=== PATIENT | male | born 1965 | race Caucasian/White ===

== ENCOUNTER 2022-08-18 21:10 | Emergency (ER) | payer BC ==
--- OUTSIDE RECORDS SUMMARY | 2022-08-18 21:15 | XMS REPORT | Continuity of Care Document ---
:1965 Author Organization [facility] t Address [address] [place] [address] Care Team Providers Name Role Phone Clair Ferguson Primary Care Physician DULCE JULIAN Attending Clinician Unavailable LU PAULINO Attending Clinician Unavailable ROBEL LOJA Attending Clinician Unavailable Lu Paulino MD Attending Clinician [phone] Sapna Quintanilla RN Attending Clinician Unavailable Alex Aaron MD Attending Clinician Doctor Unassigned, [place] Attending Clinician Unavailable YANETH CORTES Attending Clinician Unavailable LAB90 Attending Clinician Unavailable [place] Attending Clinician Unavailable MD KRZYSZTOF Attending Clinician Unavailable KENNEDI FOFANA Attending Clinician Unavailable Kennedi Fofana MD Attending Clinician CLAIR FERGUSON Attending Clinician Unavailable FRANKLIN BEE Attending Clinician Unavailable MD ISHAN MICHEL Attending Clinician Unavailable ISHAN MICHEL Attending Clinician Unavailable Lu Paulino MD Admitting Clinician [phone] LU PAULINO Admitting Clinician Unavailable KENNEDI FOFANA Admitting Clinician Unavailable MD ISHAN MICHEL Admitting Clinician Unavailable Payers Payer Name Policy Type Policy Number Effective Date Expiration Date S ource BCBS 2 [id number] 2020 00:00:00 [employer] [place] [id number] 2022 00:00:00 Problems Condition Condition Condition Status Onset Resolution Last Treating Co mments Source Name Details Category Date Date Treatment Clinician Date Rotator Rotator Disease Active Overview: Univ ers cuff cuff 07-11 Formattin ity of tendinitis tendinitis 00:00: g of this [place] , left , left 00 note Medical might be Branch different from the original. Added automatic ally from request for surgery [id number] No known No known Disease Unive rs active active ity of problems problems [facility] Allergies, Adverse Reactions, Alerts Allergy Allergy Status Severity Reaction(s) Onset Inactive Treating Comm ents Source Name Type Date Date Clinician NO KNOWN Drug Active Univers ALLERGIE Class ity of S [facility] Social History Social Habit Start Date Stop Date Quantity Comments Source History of Cigarette Smoker Universi ty of tobacco use [facility] Exposure to 2022-08-05 2022-08-15 Not sure University SARS-CoV-2 00:00:00 08:09:00 [facility] (event) Branch Tobacco use and 2022-07-27 2022-07-27 Smokeless tobacco Un iversity of exposure 00:00:00 00:00:00 non-user [facility] Sex Ass[birth year] [facility] 00:00:00 00:00:00 Smoking Status Start Date Stop Date Source Tobacco smoking [facility] consumption unknown Ex-smoker 2022-07-27 00:00:00 2022-07-27 [facility] 00:00:00 [facility] Medications Ordered Filled Start Stop Current Ordering Indication Dosage Frequency Signature Comments Components Source Medication Medication Date Date Medication? Clinician (SIG) Name Name ibuprofen Yes [id number] 600mg Take 1 Univers 600 mg 2-06 tablet by ity of tablet 00:00: mouth [place] 00 every 6 Medical (six) Branch hours as needed for Pain (scale 4-6). ibuprofen Yes [id number] 600mg Take 1 Univers 600 mg 2-06 tablet by ity of tablet 00:00: mouth [place] 00 every 6 Medical (six) Branch hours as needed for Pain (scale 4-6). ibuprofen Yes [id number] 600mg Take 1 Univers 600 mg 2-06 tablet by ity of tablet 00:00: mouth [place] 00 every 6 Medical (six) Branch hours as needed for Pain (scale 4-6). ibuprofen 2022-0 Yes [id number] 600mg Take 1 Univers 600 mg 2-06 tablet by ity of tablet 00:00: mouth [place] 00 every 6 Medical (six) Branch hours as needed for Pain (scale 4-6). HYDROcodone 2022- Yes [id number] 1{tbl} Take 1 U nivers -acetaminop 2-06 02-14 tablet by it y of hen ([employer]) 00:00: 05:59 [place] 10-[place] mg 00 :00 every 6 Medical tablet (six) Branch hours as needed for Pain (scale 4-6) for up to 7 days. Indication s: acute pain HYDROcodone 2022- Yes 4647 1{tbl} Take 1 U nivers -acetaminop 2-06 02-14 tablet by it y of hen ([employer]) 00:00: 05:59 [place] 10-325 mg 00 :00 every 6 Medical tablet (six) Branch hours as needed for Pain (scale 4-6) for up to 7 days. Indication s: acute pain HYDROcodone 2022- Yes 4647 1{tbl} Take 1 U nivers -acetaminop 2-06 02-14 tablet by it y of hen ([employer]) 00:00: 05:59 [place] 10-325 mg 00 :00 every 6 Medical tablet (six) Branch hours as needed for Pain (scale 4-6) for up to 7 days. Indication s: acute pain HYDROcodone 2022- Yes 4647 1{tbl} Take 1 U nivers -acetaminop 2-06 02-14 tablet by it y of hen ([employer]) 00:00: 05:59 [place] 10-325 mg 00 :00 every 6 Medical tablet (six) Branch hours as needed for Pain (scale 4-6) for up to 7 days. Indication s: acute pain HYDROcodone 2022- Yes 4647 1{tbl} Take 1 U nivers -acetaminop 1-31 02-08 tablet by it y of hen ([employer]) 00:00: 05:59 [place] 10-325 mg 00 :00 every 6 Medical tablet (six) Branch hours as needed for Pain (scale 7-10) for up to 7 days. Indication s: acute pain HYDROcodone 2022-0 2022- Yes 4647 1{tbl} Take 1 U nivers -acetaminop 1-31 02-08 tablet by it y of hen ([employer]) 00:00: 05:59 [place] 10-325 mg 00 :00 every 6 Medical tablet (six) Branch hours as needed for Pain (scale 7-10) for up to 7 days. Indication s: acute pain HYDROcodone 2022-0 2022- Yes 4647 1{tbl} Take 1 U nivers -acetaminop 1-31 02-08 tablet by it y of hen ([employer]) 00:00: 05:59 [place] 10-325 mg 00 :00 every 6 Medical tablet (six) Branch hours as needed for Pain (scale 7-10) for up to 7 days. Indication s: acute pain HYDROcodone 2022-0 2022- Yes 4647 1{tbl} Take 1 U nivers -acetaminop 1-31 02-08 tablet by it y of hen ([employer]) 00:00: 05:59 mouth [place] 10-325 mg 00 :00 every 6 Medical tablet (six) Branch hours as needed for Pain (scale 7-10) for up to 7 days. Indication s: acute pain HYDROcodone 2022-0 2022- Yes 4647 1{tbl} Take 1 U nivers -acetaminop 1-31 02-08 tablet by it y of hen ([employer]) 00:00: 05:59 [place] 10-325 mg 00 :00 every 6 Medical tablet (six) Branch hours as needed for Pain (scale 7-10) for up to 7 days. Indication s: acute pain HYDROcodone 2022-0 2022- Yes 4647 1{tbl} Take 1 U nivers -acetaminop 1-31 02-08 tablet by it y of hen ([employer]) 00:00: 05:59 mouth [place] 10-325 mg 00 :00 every 6 Medical tablet (six) Branch hours as needed for Pain (scale 7-10) for up to 7 days. Indication s: acute pain FENTanyl PF Yes 25ug 25 mcg, Uni vers (SUBLIMAZE -25 Slow IV ity of (PF)) 18:16: Push, [place] injection 04 Q5MIN PRN, Medi raza 25 mcg 4 doses, Branch Starting on Mon08/03/22 at 1216, Until Discontinu ed, Routine, Pain (scale 4-6), PACU ondansetron Yes 4mg 4 mg, Slow Univers (ZOFRAN 25 IV Push, ity of (PF)) 18:16: PRN, 1 [place] injection 4 04 dose, Medical mg Starting Branch on Mon08/03/22 at 1216, Until Discontinu ed, Routine, Nausea and Vomiting (N/V), PACU FENTanyl PF 2022-2022- No 25ug 25 mcg, Un ada (SUBLIMAZE 08-03 Slow IV ity o f (PF)) 18:16: 22:34 Push, [place] injection 04 :30 Q5MIN PRN, Medi raza 25 mcg 4 doses, Branch Starting on Mon08/03/22 at 1216, Until Mon08/03/22 at 1634, Routine, Pain (scale 4-6), PACU ondansetron 2022- No 4mg 4 mg, Slow Univers (ZOFRAN 08-03 IV Push, ity of (PF)) 18:16: 22:34 PRN, 1 [place] injection 4 04 :30 dose, Medical mg Starting Branch on Mon08/03/22 at 1216, Until Mon08/03/22 at 1634, Routine, Nausea and Vomiting (N/V), PACU sugammadex 2022- No IV Push, Un ada (BRIDION) 08-03 ONCE INTRA ity of injection 17:37: 18:23 PROCEDURE, [place] 00 :06 Starting Medical on Mon Branch 08/03/22 at 1137, Until Mon08/03/22 at 1223, Routine, Intra-op ketorolac 2022- No Slow IV Univ ers (TORADOL) 08-03 Push, ONCE ity of injection 17:36: 18:23 INTRA [place] 00 :06 PROCEDURE, Medical Starting Branch on Mon08/03/22 at 1136, Until Mon08/03/22 at 1223, Routine, Intra-op EPINEPHrine 2022- No PRN, Unive rs (PF) 08-03 Starting ity of 1:1,000 (1 16:09: 18:15 on Mon [place] mg/mL) 00 :53 08/03/22 at Medical (ADRENALIN 1009, Branch (PF)) 3 mL Intra-op in NaCl 0.9% (NS) 3,000 mL OR irrigation PHENYLephri 2022- No Slow IV Un ada ne 1000 08-03 Push, ONCE ity o f mcg/10 mL 15:51: 18:23 INTRA [place] in 0.9% 00 :06 PROCEDURE, Medica l NaCl Starting Branch syringe on Mon08/03/22 at 0951, Until Mon08/03/22 at 1223, Routine, Intra-op dexmedeTOMI 2022- No Intravenou Univers Dine 08-03 s, ONCE ity of (PRECEDEX) 15:47: 18:23 INTRA [place] injection 00 :06 PROCEDURE, Medi raza Starting Branch on Mon08/03/22 at 0947, Until Mon08/03/22 at 1223, Routine, Intra-op ceFAZolin 2022- No Intravenou U nivers (ANCEF) 08-03 s, ONCE ity of injection 15:45: 18:23 INTRA [place] 00 :06 PROCEDURE, Medical Starting Branch on Mon08/03/22 at 0945, Until Mon08/03/22 at 1223, SHERWIN, Intra-op ondansetron 2022- No Slow IV Un ada (ZOFRAN 08-03 Push, ONCE ity o f (PF)) 15:44: 18:23 INTRA [place] injection 00 :06 PROCEDURE, Medi raza Starting Branch on Mon08/03/22 at 0944, Until Mon08/03/22 at 1223, Routine, Intra-op dexamethaso 2022- No IV Push, U nivers ne 08-03 ONCE INTRA ity of (DECADRON 15:42: 18:23 PROCEDURE, [place] PHOSPHATE) 00 :06 Starting Medic al injection on Wed Branch 08/03/22 at 0942, Until Mon08/03/22 at 1223, Routine, Intra-op rocuronium 2022- No IV Push, Un ada (ZEMURON) 08-03 ONCE INTRA ity of injection 15:40: 18:23 PROCEDURE, [place] 00 :06 Starting Medical on Mon Branch 08/03/22 at 0940, Until Mon08/03/22 at 1223, Routine, Intra-op succinylcho 2022- No Intravenou Univers line 08-03 s, ONCE ity of (QUELICIN) 15:31: 18:23 INTRA [place] injection 00 :06 PROCEDURE, Medi raza Starting Branch on 08/03/22 at 0931, Until Mon08/03/22 at 1223, Routine, Intra-op propofoL IV 2022- No Intravenou Univers infusion 08-03 s, ONCE ity of 15:31: 18:23 INTRA [place] 00 :06 PROCEDURE, Medical Starting Branch on 08/03/22 at 0931, Until Mon08/03/22 at 1223, Routine, Intra-op lidocaine 2022- No Intravenou U nivers 1% 08-03 s, ONCE ity of (XYLOCAINE) 15:30: 18:23 INTRA [place] 100 mg/10 00 :06 PROCEDURE, Medi raza mL (1 %) Starting Branch injection on 08/03/22 at 0930, Until Mon08/03/22 at 1223, Routine, Intra-op bupivacaine 2022- No Infiltrati Univers (preserv 08-03 on, ONCE ity of free) 0.5% 14:13: 18:23 INTRA [place] (SENSORCAIN 00 :06 PROCEDURE, Me dical E MPF) 0.5 Starting Branc h % (5 mg/mL) on Wed injection 08/03/22 at 0813, Until Mon08/03/22 at 1223, Routine, Intra-op bupivacaine 2022- No Infiltrati Univers liposome 08-03 on, ONCE ity of (PF) 14:13: 18:23 INTRA [place] (EXPAREL 00 :06 PROCEDURE, Medic al (PF)) 1.3 % Starting Bran ch (13.3 on Mon mg/mL) 08/03/22 at injection 0813, Until Mon08/03/22 at 1223, Routine, Intra-op FENTanyl PF 2022- No Intravenou Univers (SUBLIMAZE 08-03 s, ONCE ity o f (PF)) 14:07: 18:23 INTRA [place] injection 00 :06 PROCEDURE, Medi raza Starting Branch on Mon08/03/22 at 0807, Until Mon08/03/22 at 1223, Routine, Intra-op midazolam 2022- No IV Push, Uni vers (VERSED) 08-03 ONCE INTRA ity of injection 14:05: 18:23 PROCEDURE, [place] 00 :06 Starting Medical on Mon Branch 08/03/22 at 0805, Until Mon08/03/22 at 1223, Routine, Intra-op lactated 2022- No IV Univers ringers IV 08-03 Infusion, ity of infusion 14:02: 18:23 CONTINUOUS [place] 00 :06 PRN, Medical Starting Branch on Mon08/03/22 at 0802, Until Mon08/03/22 at 1223, Routine, Intra-op HYDROcodone 2022- Yes [id number] 1{tbl} Take 1 U nivers -acetaminop 08-03 tablet by it y of hen 5-325 00:00: 05:59 mouth [place] mg tablet 00 :00 every 6 Medical (six) Branch hours as needed for Pain (scale 7-10) for up to 7 days. Indication s: acute pain ondansetron 2022- Yes [id number] 4mg Take 1 Univers (ZOFRAN) 4 08-03 [id number] tablet by i ty of mg tablet 00:00: 05:59 mouth [place] 00 :00 every 6 Medical (six) Branch hours for 7 days. traMADoL 50 2022- Yes [id number] 50mg Take 1 Uni vers mg tablet 08-03 tablet by ity of 00:00: 05:59 mouth [place] 00 :00 every 6 Medical (six) Branch hours as needed for Pain (scale 4-6) or Pain (scale 7-10) for up to 7 days. Indication s: acute pain HYDROcodone 2022- Yes 4647 1{tbl} Take 1 U nivers -acetaminop 08-03 tablet by it y of hen 5-325 00:00: 05:59 mouth [place] mg tablet 00 :00 every 6 Medical (six) Branch hours as needed for Pain (scale 7-10) for up to 7 days. Indication s: acute pain ondansetron 2022- Yes [id number] 4mg Take 1 Univers (ZOFRAN) 4 08-03 [id number] tablet by i ty of mg tablet 00:00: 05:59 mouth [place] 00 :00 every 6 Medical (six) Branch hours for 7 days. traMADoL 50 2022- Yes [id number] 50mg Take 1 Uni vers mg tablet 08-03 tablet by ity of 00:00: 05:59 mouth [place] 00 :00 every 6 Medical (six) Branch hours as needed for Pain (scale 4-6) or Pain (scale 7-10) for up to 7 days. Indication s: acute pain HYDROcodone 2022- Yes 4647 1{tbl} Take 1 U nivers -acetaminop 08-03 tablet by it y of hen 5-325 00:00: 05:59 mouth [place] mg tablet 00 :00 every 6 Medical (six) Branch hours as needed for Pain (scale 7-10) for up to 7 days. Indication s: acute pain ondansetron 2022- Yes [id number] 4mg Take 1 Univers (ZOFRAN) 4 08-03 [id number] tablet by i ty of mg tablet 00:00: 05:59 mouth [place] 00 :00 every 6 Medical (six) Branch hours for 7 days. traMADoL 50 2022-2022- Yes 4647 50mg Take 1 Uni vers mg tablet 08-03 tablet by ity of 00:00: 05:59 mouth [place] 00 :00 every 6 Medical (six) Branch hours as needed for Pain (scale 4-6) or Pain (scale 7-10) for up to 7 days. Indication s: acute pain HYDROcodone 2022- Yes 4647 1{tbl} Take 1 U nivers -acetaminop 08-03 tablet by it y of hen 5-325 00:00: 05:59 mouth [place] mg tablet 00 :00 every 6 Medical (six) Branch hours as needed for Pain (scale 7-10) for up to 7 days. Indication s: acute pain ondansetron 2022- Yes [id number] 4mg Take 1 Univers (ZOFRAN) 4 08-03 [id number] tablet by i ty of mg tablet 00:00: 05:59 mouth [place] 00 :00 every 6 Medical (six) Branch hours for 7 days. traMADoL 50 2022- Yes [id number] 50mg Take 1 Uni vers mg tablet 08-03 tablet by ity of 00:00: 05:59 mouth [place] 00 :00 every 6 Medical (six) Branch hours as needed for Pain (scale 4-6) or Pain (scale 7-10) for up to 7 days. Indication s: acute pain HYDROcodone 2022- Yes 4647 1{tbl} Take 1 U nivers -acetaminop 08-03 tablet by it y of hen 5-325 00:00: 05:59 mouth [place] mg tablet 00 :00 every 6 Medical (six) Branch hours as needed for Pain (scale 7-10) for up to 7 days. Indication s: acute pain ondansetron 2022- Yes [id number] 4mg Take 1 Univers (ZOFRAN) 4 08-03 [id number] tablet by i ty of mg tablet 00:00: 05:59 mouth [place] 00 :00 every 6 Medical (six) Branch hours for 7 days. traMADoL 50 2022- Yes [id number] 50mg Take 1 Uni vers mg tablet 08-03 tablet by ity of 00:00: 05:59 mouth [place] 00 :00 every 6 Medical (six) Branch hours as needed for Pain (scale 4-6) or Pain (scale 7-10) for up to 7 days. Indication s: acute pain HYDROcodone 2022- Yes 4647 1{tbl} Take 1 U nivers -acetaminop 08-03 tablet by it y of hen 5-325 00:00: 05:59 mouth [place] mg tablet 00 :00 every 6 Medical (six) Branch hours as needed for Pain (scale 7-10) for up to 7 days. Indication s: acute pain ondansetron 2022- Yes [id number] 4mg Take 1 Univers (ZOFRAN) 4 08-03 [id number] tablet by i ty of mg tablet 00:00: 05:59 mouth [place] 00 :00 every 6 Medical (six) Branch hours for 7 days. traMADoL 50 2022- Yes [id number] 50mg Take 1 Uni vers mg tablet 08-03 tablet by ity of 00:00: 05:59 mouth [place] 00 :00 every 6 Medical (six) Branch hours as needed for Pain (scale 4-6) or Pain (scale 7-10) for up to 7 days. Indication s: acute pain HYDROcodone 2022- Yes 4647 1{tbl} Take 1 U nivers -acetaminop 08-03 tablet by it y of hen 5-325 00:00: 05:59 mouth [place] mg tablet 00 :00 every 6 Medical (six) Branch hours as needed for Pain (scale 7-10) for up to 7 days. Indication s: acute pain ondansetron 2022- Yes [id number] 4mg Take 1 Univers (ZOFRAN) 4 08-03 [id number] tablet by i ty of mg tablet 00:00: 05:59 mouth [place] 00 :00 every 6 Medical (six) Branch hours for 7 days. traMADoL 50 2022- Yes [id number] 50mg Take 1 Uni vers mg tablet 08-03 tablet by ity of 00:00: 05:59 mouth [place] 00 :00 every 6 Medical (six) Branch hours as needed for Pain (scale 4-6) or Pain (scale 7-10) for up to 7 days. Indication s: acute pain No known No No known Unive rs medications -12 medication it y of 12:04: s [place] 29 Medical Branch No known 2022-0 No No known Unive rs medications - medication it y of 15:48: s [place] [facility] Branch No known 2022-0 No No known Unive rs medications -02 medication it y of 15:48: s [place] [id number] Medical Branch amoxicillin 2021- Yes 1{tbl} Take 1 Un ada 500 mg 2-30 tablet by ity of tablet 00:00: mouth in [place] 00 the Medical [facility] Branch and 1 tablet at noon and 1 tablet in the evening. ibuprofen 2021-07 Yes as needed. Un ada 800 mg 2-30 ity of tablet 00:00: [place] [facility] lisinopriL- 2021-07 Yes 1{tbl} Take 1 Un ada hydrochloro 2-30 tablet by ity of thiazide 00:00: mouth [place] 10-12.5 mg 00 every Medical per tablet morning. Branc h ibuprofen 2021-07 Yes as needed. Un ada 800 mg 2-30 ity of tablet 00:00: [place] [facility] lisinopriL- 2021-07 Yes 1{tbl} Take 1 Un ada hydrochloro 2-30 tablet by ity of thiazide 00:00: mouth [place] 10-12.5 mg 00 every Medical per tablet morning. Branc h ibuprofen 2021-07 Yes as needed. Un ada 800 mg 2-30 ity of tablet 00:00: [place] [facility] lisinopriL- 2021-07 Yes 1{tbl} Take 1 Un ada hydrochloro 2-30 tablet by ity of thiazide 00:00: mouth [place] 10-12.5 mg 00 every Medical per tablet morning. Branc h ibuprofen 2021-07 Yes as needed. Un ada 800 mg 2-30 ity of tablet 00:00: [place] [facility] lisinopriL- 2021-07 Yes 1{tbl} Take 1 Un ada hydrochloro 2-30 tablet by ity of thiazide 00:00: mouth [place] 10-12.5 mg 00 every Medical per tablet morning. Branc h ibuprofen 2021-07 Yes as needed. Un ada 800 mg 2-30 ity of tablet 00:00: [place] [facility] lisinopriL- 2021-07 Yes 1{tbl} Take 1 Un ada hydrochloro 2-30 tablet by ity of thiazide 00:00: mouth [place] 10-12.5 mg 00 every Medical per tablet morning. Branc h ibuprofen 2021-07 Yes as needed. Un ada 800 mg 2-30 ity of tablet 00:00: [place] [facility] lisinopriL- 2021-07 Yes 1{tbl} Take 1 Un ada hydrochloro 2-30 tablet by ity of thiazide 00:00: mouth [place] 10-12.5 mg 00 every Medical per tablet morning. Branc h ibuprofen 2021-07 Yes as needed. Un ada 800 mg 2-30 ity of tablet 00:00: [facility] lisinopriL- 2021-07 Yes 1{tbl} Take 1 Un ada hydrochloro 2-30 tablet by ity of thiazide 00:00: mouth [place] 10-12.5 mg 00 every Medical per tablet morning. Branc h ibuprofen 2021-07 Yes as needed. Un ada 800 mg 2-30 ity of tablet 00:00: [facility] lisinopriL- 2021-07 Yes 1{tbl} Take 1 Un ada hydrochloro 2-30 tablet by ity of thiazide 00:00: mouth [place] 10-12.5 mg 00 every Medical per tablet morning. Branc h ibuprofen 2021-07 Yes as needed. Un ada 800 mg 2-30 ity of tablet 00:00: [facility] lisinopriL- 2021-07 Yes 1{tbl} Take 1 Un ada hydrochloro 2-30 tablet by ity of thiazide 00:00: mouth [place] 10-12.5 mg 00 every Medical per tablet morning. Branc h ibuprofen 2021-07 Yes as needed. Un ada 800 mg 2-30 ity of tablet 00:00: [facility] lisinopriL- 2021-07 Yes 1{tbl} Take 1 Un ada hydrochloro 2-30 tablet by ity of thiazide 00:00: mouth [place] 10-12.5 mg 00 every Medical per tablet morning. Bran h ibuprofen 2021-07 Yes as needed. Un ada 800 mg 2-30 ity of tablet 00:00: [facility] lisinopriL- 2021-07 Yes 1{tbl} Take 1 Un ada hydrochloro 2-30 tablet by ity of thiazide 00:00: mouth [place] 10-12.5 mg 00 every Medical per tablet morning. Branc h ibuprofen 2021-07 Yes as needed. Un ada 800 mg 2-30 ity of tablet 00:00: [facility] lisinopriL- 2021-07 Yes 1{tbl} Take 1 Un ada hydrochloro 2-30 tablet by ity of thiazide 00:00: mouth [place] 10-12.5 mg 00 every Medical per tablet [facility]. [facility]-07 Yes as needed. Un ada 800 mg 2-30 ity of tablet 00:00: [place] [facility] lisinopriL- 2021-07 Yes 1{tbl} Take 1 Un ada hydrochloro 2-30 tablet by ity of thiazide 00:00: mouth [place] 10-12.5 mg 00 every Medical per tablet morning. [facility] ibuprofen 2021-07 Yes as needed. Un ada 800 mg 2-30 ity of tablet 00:00: [place] [facility] lisinopriL- 2021-07 Yes 1{tbl} Take 1 Un ada hydrochloro 2-30 tablet by ity of thiazide 00:00: mouth [place] 10-12.5 mg 00 every Medical per tablet morning. [facility] amoxicillin 2021-07- No 1{tbl} Take 1 U nivers 500 mg 2-30 01-25 tablet by ity of tablet 00:00: 00:00 mouth in [place] 00 :[facility] morning Branch and 1 tablet at noon and 1 tablet in the evening. amoxicillin 2021-07- No 1{tbl} Take 1 U nivers 500 mg 2-30 01-25 tablet by ity of tablet 00:00: 00:00 mouth in [place] 00 :00 [facility] morning Branch and 1 tablet at noon and 1 tablet in the evening. amoxicillin 2021-07- No 1{tbl} Take 1 U nivers 500 mg 2-30 01-25 tablet by ity of tablet 00:00: 00:00 mouth in [place] 00 :00 [facility] morning Branch and 1 tablet at noon and 1 tablet in the evening. No known 2021-07 No No known Unive rs medications 1-23 medication it y of 13:49: s [address] No known 2021-07 No No known Unive rs medications - medication it y of 13:49: [address] No known 2021-07 No No known Unive rs medications - medication it y of 13:49: [address] No known 2021-07 No No known Unive rs medications -23 medication it y of 13:49: [address] No known 2021-07 No No known Unive rs medications 1-23 medication it y of 13:49: s [place] [address] Medical Branch No known 2021-07 No No known Unive rs medications 1-23 medication it y of 13:49: s [place] [address] Medical Branch No known 2021-07 No No known Unive rs medications 1-23 medication it y of 13:49: s [place] [address] Medical Branch No known 2021-07 No No known Unive rs medications 1-23 medication it y of 13:49: [place] [address] Medical Branch omeprazole 2021- Yes 20mg Take 20 mg U nivers 20 mg 0-20 by mouth ity of capsule 00:00: in the [place] 00 morning. Medical Branch omeprazole 2021-1 Yes 20mg Take 20 mg U nivers 20 mg 0-20 by mouth ity of capsule 00:00: in the [place] 00 morning. Medical Branch omeprazole 2021-1 Yes 20mg Take 20 mg U nivers 20 mg 0-20 by mouth ity of capsule 00:00: in the [place] 00 morning. Medical Branch omeprazole 2021-1 Yes 20mg Take 20 mg U nivers 20 mg 0-20 by mouth ity of capsule 00:00: in the [place] 00 morning. Medical Branch omeprazole 2021-1 Yes 20mg Take 20 mg U nivers 20 mg 0-20 by mouth ity of capsule 00:00: in the [place] 00 morning. Medical Branch omeprazole 2021-1 Yes 20mg Take 20 mg U nivers 20 mg 0-20 by mouth ity of capsule 00:00: in the [place] 00 morning. Medical Branch omeprazole 2021-1 Yes 20mg Take 20 mg U nivers 20 mg 0-20 by mouth ity of capsule 00:00: in the [place] 00 morning. Medical Branch omeprazole 2021-1 Yes 20mg Take 20 mg U nivers 20 mg 0-20 by mouth ity of capsule 00:00: in the [place] 00 morning. Medical Branch omeprazole 2021-1 Yes 20mg Take 20 mg U nivers 20 mg 0-20 by mouth ity of capsule 00:00: in the [place] 00 morning. Medical Branch omeprazole 2021-1 Yes 20mg Take 20 mg U nivers 20 mg 0-20 by mouth ity of capsule 00:00: in the [place] 00 morning. Medical Branch omeprazole 2021-1 Yes 20mg Take 20 mg U nivers 20 mg 0-20 by mouth ity of capsule 00:00: in the [place] 00 morning. Medical Branch omeprazole 2021-07 Yes 20mg Take 20 mg U nivers 20 mg 0-20 by mouth ity of capsule 00:00: in the [place] morning. Medical Branch omeprazole 2021-07 Yes 20mg Take 20 mg U nivers 20 mg 0-20 by mouth ity of capsule 00:00: in the [place] morning. Medical Branch omeprazole 2021-07 Yes 20mg Take 20 mg U nivers 20 mg 0-20 by mouth ity of capsule 00:00: in the [place] 00 morning. Medical Branch methylPREDN 2021-07- No [id number] 80mg Univers ISolone 04-20 [id number] ity of acetate 21:30: 20:40 [place] (DEPO-MEDRO 00 :00 Medical L) Branch injection 80 mg methylPREDN 2021-07- No [id number] 80mg 80 mg, Univers ISolone 04-20 [id number] Intramuscu ity of acetate 21:30: 20:40 [place], ONCE, [place] as (DEPO-MEDRO 00 :00 1 dose, On Me dical L) Wed Branch injection 04/20/22 80 mg at 1630, Routine methylPREDN 2021-07- No [id number] 80mg Univers ISolone 04-20 [id number] ity of acetate 21:30: 20:40 [place] (DEPO-MEDRO 00 :00 Medical L) Branch injection 80 mg methylPREDN 2021-07- No [id number] 80mg 80 mg, Univers ISolone 04-20 [id number] Intramuscu ity of acetate 21:30: 20:40 lar, ONCE, [place] as (DEPO-MEDRO 00 :00 1 dose, On Me dical L) [facility] Branch injection 04/20/22 80 mg at 1630, Routine No known 2021-07 No No known Unive rs medications 0-10 medication it y of 10:14: s [address] No known 2021-07 No No known Unive rs medications 0-10 medication it y of 10:14: s [address] No known 2021-07 No No known Unive rs medications 0-10 medication it y of 10:14: s [address] No known 2021-07 No No known Unive rs medications 0-10 medication it y of 10:14: s [address] Vital Signs Vital Name Observation Time Observation Value Comments Source Systolic blood 2022-08-15 14:19:00 150 mm[Hg] Univer sity of pressure [facility] Branch Diastolic blood 2022-08-15 14:19:00 80 mm[Hg] Unive rsity of [facility] Heart rate 2022-08-15 14:19:00 79 /min Universi ty of [facility] Body temperature 2022-08-15 14:17:00 36.56 Ermelinda Univ ersity of [facility] Body height 2022-08-15 14:17:00 182.9 cm [facility] [place] [facility] Body weight 2022-08-15 14:17:00 109.725 kg [facility] [place] [facility] BMI 2022-08-15 14:17:00 32.81 kg/m2 Universi ty of [facility] Heart rate 2022-08-03 19:55:00 85 /min Universi ty [facility] Oxygen saturation in 2022-08-03 19:55:00 94 /min University Arterial blood by [facility] Pulse oximetry Branch Systolic blood 2022-08-03 19:50:00 134 mm[Hg] Univer sity of [facility] Diastolic blood 2022-08-03 19:50:00 77 mm[Hg] Unive rsity of [facility] Respiratory rate 2022-08-03 19:50:00 16 /min Univ ersity of [facility] Body temperature 2022-08-03 18:12:00 35.94 Ermelinda Univ ersity of [facility] Body height 2022-08-03 13:13:00 182.9 cm [facility] [place] [facility] Body weight 2022-08-03 13:13:00 99.791 kg [facility] [place] [facility] BMI 2022-08-03 13:13:00 29.84 kg/m2 [facility] [place] [facility] Systolic blood 2022-08-03 13:13:00 150 mm[Hg] Univer sity of pressure [facility] Diastolic blood 2022-08-03 13:13:00 90 mm[Hg] Unive rsity of pressure [facility] Heart rate 2022-08-03 13:13:00 79 /min Universi ty of [facility] Body temperature 2022-08-03 13:13:00 36.89 Ermelinda [facility] ersity of [facility] Respiratory rate 2022-08-03 13:13:00 18 /min [facility] ersity of [facility] Body height 2022-08-03 13:13:00 182.9 cm Universi ty of [facility] Body weight 2022-08-03 13:13:00 99.791 kg Universi ty [facility] BMI 2022-08-03 13:13:00 29.84 kg/m2 Universi ty [facility] Oxygen saturation in 2022-08-03 13:13:00 98 [facility] blood by [facility] Pulse oximetry Branch Body weight 2022-07-11 21:06:00 107.457 kg Universi ty [facility] BMI 2022-07-11 21:06:00 32.13 kg/m2 Universi ty [facility] Body temperature 2022-07-11 21:06:00 36.39 Ermelinda [facility] ersity of [facility] Body height 2022-07-11 21:06:00 182.9 cm Universi ty [facility] Systolic blood 2022-04-18 15:13:00 131 mm[Hg] Univer sity of [facility] Diastolic blood 2022-04-18 15:13:00 75 mm[Hg] [facility] Heart rate 2022-04-18 15:13:00 92 /min Universi ty [facility] Body temperature 2022-04-18 15:13:00 36.11 Ermelinda [facility] ersity of [facility] Body height 2022-04-18 15:13:00 182.9 cm [facility] [place] [facility] [place] Body weight 2022-04-18 15:13:00 105.053 kg Universi ty of [facility] Branch BMI 2022-04-18 15:13:00 31.41 kg/m2 Universi ty of [facility] Procedures Procedure Date / Time Performing Clinician Source Performed NERVE BLOCK 2022-08-05 18:13:01 Esvin Anderson [facility] INTUBATION 2022-08-03 15:33:00 Jeanne Farrar [facility] ARTHROSCOPIC SHOULDER 2022-08-03 15:11:00 Lu Paulino [facility] ROTATOR CUFF REPAIR [facility] SHOULDER TENODESIS 2022-08-03 15:11:00 [facility] ARTHROSCOPIC SHOULDER 2022-08-03 15:11:00 Lu Paulino [facility] DEBRIDEMENT [facility] DISTAL CLAVICAL RESECTION 2022-08-03 15:11:00 [facility] ASSIGN[facility] BENEFITS 2022-08-03 12:49:12 [facility], [facility] Branch INSURANCE CORRESPONDENCE 2022-07-22 06:01:00 Doctor Unassigned, [facility] Name Medical Branch MR SHOULDER LEFT WO 2022-06-30 17:21:18 Lu Paulino [facility] CONTRAST [facility] ASSIGNMENT OF BENEFITS 2022-06-07 18:43:29 Doctor Unassigned, [facility] Name [facility] XR SHOULDER 2+ VW 2022-04-18 15:22:43 [facility] Plan of Care Planned Activity Planned Date Details Comments Source Future Scheduled 2022-08-18 COVID-19 VACCINE (#1) [facility] Hospital Test 21:13:05 [code = COVID-19 VACCINE (#1)] Future Scheduled 2022-08-18 COLONOSCOPY SCREENING [facility] Test 21:13:05 [code = COLONOSCOPY SCREENING] Future Scheduled 2022-08-18 SHINGLES VACCINES (1 Met [facility] Hospital Test 21:13:05 of 2) [code = SHINGLES VACCINES (1 of 2)] Future Scheduled 2022-08-18 INFLUENZA VACCINE [facility] Test 21:13:05 [code = INFLUENZA VACCINE] Encounters Start End Encounter Admission Attending Care Care Encounter Source Date/Time Date/Time Type Type Clinicians Facility Department ID 2022-09-28 2022-09-28 Outpatient ASHLEY JULIAN [id number] [place] 15:00:00 15:00:00 DULCE Seybol d 2022-08-19 2022-08-19 [facility] [id number] Univers 08:45:00 08:45:00 ROBEL ity [facility] 2022-08-16 2022-08-16 Patient [facility] [id number] Univers 00:00:00 00:00:00 Secure Msg Lu SPECIALTY [id number] ity [id number] [phone] [place] michelle HERBERT [address] [place] [address] 2022-08-15 2022-08-15 [facility] [id number] Univers 08:00:00 08:41:43 LU itmaliha [facility] 2022-08-15 2022-08-15 Office [facility] [id number] Univers 08:00:00 08:41:43 Visit Lu SPECIALTY [id number] ity [id number] [phone] [place] michelle HERBERT [address] [place] [address] 2022-08-12 2022-08-12 Telephone [facility] [id number] Univers 00:00:00 00:00:00 Lu SPECIALTY [id number] it[id number] AT [phone] [place] michelle HERBERT [address] [place] [address] 2022-08-09 2022-08-09 Telephone [facility] [id number] Univers 00:00:00 00:00:00 Lu SPECIALTY [id number] ity [id number] AT [phone] [place] michelle HERBERT [address] [place] [address] 2022-08-04 2022-08-04 Telephone [facility] [id number] Univers 00:00:00 00:00:00 Lu SPECIALTY [id number] ity [id number] AT [id number] [place] dicyaron HERBERT 198 [facility] 2022-08-03 2022-08-03 Hospital [facility] [id number] Univers 06:49:00 14:07:00 Encounter Lu [facility] [id number] ity of [place] [facility] [id number] [address] ([facility]) 2022-08-03 2022-08-03 Outpatient R [facility] [id number] Univers 06:49:00 14:07:00 LU ity [facility] 2022-08-03 2022-08-03 Anesthesia Sapna Quintanilla [facility] 1.2.84 [id number] [id number] Univers 09:21:00 12:15:00 Event Alex Aaron SPECIALTY 350.1.13.1 0 ity of CARE 4.2[address] [facility] s CENTER AT [phone] [place] dicyaron HERBERT 020 [facility] 2022-08-03 2022-08-03 Surgery [facility] [id number] Univers 08:56:00 12:08:00 Lu SPECIALTY 350.1.13.10 ity of [place] CARE [id number] [facility] CENTER AT [id number] Ks moustaphayaron HERBERT 020 [facility] 2022-08-03 2022-08-03 Orders Doctor GEE [id number] Univers 00:00:00 00:00:00 Only Unassigned, LOYDA 350.1.13.10 ity of [place] [facility] 4.2.7.2.686 [place] as [id number] [address] 2022-07-22 2022-07-22 Orders Doctor GEE [id number] Univers 00:00:00 00:00:00 Only Unassigned, LOYDA 350.1.13.10 ity of [place] [facility] 4.2.7.2.686 [place] as [id number] [address] 2022-07-18 2022-07-18 Outpatient ASHLEY JULIAN [id number] [place] 14:00:00 14:00:00 DULCE Seybol d 2022-07-18 2022-07-18 Outpatient SOPHIA ASHLEY ASHLEY [id number] [place] 00:00:00 00:00:00 YANETH Seybol d 2022-07-18 2022-07-18 Outpatient ELIEL ASHLEY TANNER [id number] [place] 00:00:00 00:00:00 DULCE Seybol d 2022-07-15 2022-07-15 Outpatient LAB90 ASHLEY TANNER [id number] [place] 11:15:00 11:15:00 Seybol d 2022-07-15 2022-07-15 Outpatient PRATEEK PERATLA ASHLEY TANNER [id number] [place] 11:15:00 11:15:00 Seybol d 2022-07-11 2022-07-11 [facility] [id number] [facility] 14:30:00 15:27:01 LU de la cruz [facility] 2022-07-11 2022-07-11 Office [facility] [id number] [facility] 14:30:00 15:27:01 Visit Lu MALIK 350.1.13.10 jono conte Bill [facility] [id number] [facility] AT [phone] [address] 2022-06-30 2022-06-30 Outpatient [facility] [id number] Univers 10:38:44 23:59:00 LU de la cruz [facility] 2022-06-30 2022-06-30 [facility] 1.2.840.114 [id number] Univers 10:38:44 23:59:00 Encounter Lu CHUA 350.1.13.10 Didier [place] 4.2.7.2.686 [facility] [id number] [address] 2022-06-30 2022-06-30 Telephone [facility] 1.2.840.114 [id number] Univers 00:00:00 00:00:00 Lu SPECIALTY 350.1.13.10 ity of Bill CARE [id number] [facility] AT [phone] [place]s dical VICTORY 198 [facility] 2022-06-20 2022-06-20 Outpatient ZOE TANNER [id number] Ashley 00:00:00 00:00:00 MD Fabiola AGUILLON 2022-06-17 2022-06-17 Outpatient ZOE TANNER [id number] [place] 00:00:00 00:00:00 MD Fabiola AGUILLON 2022-06-16 2022-06-16 Outpatient ASHLEY JULIAN [id number] [place] 00:00:00 00:00:00 DULCE naqvi 2022-06-10 2022-06-10 Outpatient ZOE TANNER [id number] [place] 00:00:00 00:00:00 MD Fabiola AGUILLON 2022-06-07 2022-06-07 Outpatient [facility] [id number] Univers 12:45:50 23:59:00 KENNEDI ity of [facility] 2022-06-07 2022-06-07 [facility] 1.2.840.114 [id number] Univers 12:45:00 23:59:00 Encounter Kennedi CHUA 350.1.13.10 ity of [place] 4.2.7.2.686 [facility] [id number] [facility] [address] [place] 2022-06-07 2022-06-07 Orders Doctor GEE 1.2.840.114 [id number] Univers 00:00:00 00:00:00 Only Unassigned, LOYDA 350.1.13.10 ity of [place] [facility] 4.2.7.2.686 [place] [id number] [facility] [address] [place] 2022-06-07 2022-06-07 [facility]phone [facility] 1.2.840.114 [id number] Univers 00:00:00 00:00:00 Lu SPECIALTY 350.1.13.[address] [facility] [id number] [id number] [place] michelle HERBERT 198 [facility] 2022-06-06 2022-06-06 Outpatient LAB90 ASHLEY TANNER [id number] [place] 11:15:00 11:15:00 Seybol d 2022-06-06 2022-06-06 Outpatient ASHLEY FERGUSON [id number] [place] 00:00:00 00:00:00 CLAIR Seybol d 2022-06-01 2022-06-01 Outpatient ZOE ASHLEY TANNER [id number] [place] 00:00:00 00:00:00 MD PAL Seybol d 2022-05-30 2022-05-30 Telemedici [facility] 1.2.840.114 [id number] [facility] 12:45:00 13:00:00 ne Visit Lu SPECIALTY 350.1.13.[address] [facility] [id number] [facility] CENTER AT [phone] [place]s michelle HERBERT 198 [facility] 2022-05-30 2022-05-30 Outpatient [facility] [id number] [facility] 12:45:00 12:45:00 LU de la cruz [facility] 2022-05-18 2022-05-18 Outpatient ASHLEY JULIAN [id number] [place] 15:00:00 15:00:00 DULCE Seybol d 2022-05-17 2022-05-17 Outpatient ASHLEY FERGUSON [id number] [place] 00:00:00 00:00:00 CLAIR Seybol d 2022-05-05 2022-05-05 Outpatient LAB90 ASHLEY TANNER [id number] [place] 11:20:00 11:20:00 Seybol d 2022-04-28 2022-04-28 Outpatient ASHLEY FERGUSON [id number] [place] 16:00:00 16:00:00 CLAIR Seybol d 2022-04-18 2022-04-18 [facility] 1.2.840.114 [id number] Univers 10:14:56 23:59:00 Encounter Lu [facility] s [place] AT [phone] [place]s michelle HERBERT 809 [facility] 2022-04-18 2022-04-18 Office [facility] [id number] Univers 10:15:00 10:56:59 Visit Lu MALIK [facility].1.13.10 [facility] 4.2.7.2.686 [facility] AT [id number] [place] michelle HERBERT 198 [facility] 2022-04-18 2022-04-18 [facility] [id number] [facility] 10:15:00 10:56:59 LU de la cruz [facility] 2021-02-09 2021-02-09 Outpatient ASHLEY BEE [id number] [place] 09:00:00 09:00:00 FRANKLIN naqvi 2020-06-24 2020-06-24 [facility] [id number] [place] 00:00:00 00:00:00 ISHAN Lopez Method i st Results Test Description Test Time Test Comments Results Result Comments Source SARS-CoV-2 (COVID-19) RNA [Presence] in Respiratory sp ecimen by 2020-06-24 20:18:00 MARIO with probe detection Test Item Value Reference Range Interpretation Comme nts SARS-CoV-2 (COVID-19) RNA [Presence] in Respiratory Not detected No t-Detected specimen by MARIO with probe detection (test code = 80004-9) CARLIN SORTO [place] [facility]
--- NOTE | 2022-08-18 21:52 | RAD REPORT ---
EXAM DESCRIPTION: CT - CTHCSPWOC - 08/18/2022 9:39 pm CLINICAL HISTORY: Trauma, head and neck injury. fall, head injury COMPARISON: No comparisons TECHNIQUE: Axial 5 mm thick images of the head were obtained. Axial 2 mm thick images of the cervical spine were obtained with sagittal and coronal reconstruction images generated and reviewed. All CT scans are performed using dose optimization technique as appropriate and may include automated exposure control or mA/KV adjustment according to patient size. FINDINGS: CT HEAD WITHOUT CONTRAST: There is increased density seen along the anterior aspect of the falx measuring up to 3 mm.This is qu estionable for small amount of subdural blood.No areas of brain edema or midline shift. The paranasal sinuses and mastoids are clear.The calvarium is intact. Large left posterior scalp susie paul measuring to [address] CERVICAL SPINE WITHOUT CONTRAST: No fracture or subluxation.Prominent degenerative changes seen C2-3 left facet joint.No prevertebral soft tissues swelling is identified. IMPRESSION: Subtle increased density seen aspect falx is questionable for a small amount of subdural blood.MRI the brain would be helpful further clarification. Large left posterior scalp hematoma. No acute cervical spine abnormality.
--- NOTE | 2022-08-18 21:54 | RAD REPORT ---
EXAM DESCRIPTION: CT - CTFB CLINICAL HISTORY: FACIAL PAIN Trauma, facial pain and swelling. COMPARISON: No comparisons TECHNIQUE: Axial 2 mm thick images of the face were obtained with sagittal and coronal reconstructio n images. All CT scans are performed using dose optimization technique as appropriate and may include automated exposure control or mA/KV adjustment according to patient size. FINDINGS: No acute facial bone fracture is seen.The mandible is intact. The globes and orbital contents are grossly unremarkable.The paranasal sinuses and mastoids are clear . IMPRESSION: Negative for facial bone fracture.
[2022-08-18] MEDS ORDERED: MORPHINE 4 MG/ML SYR ONE ×2 (21:59→23:03)
[2022-08-18] MEDS ORDERED: ONDANSETRON 4 MG/2 ML VIAL ONE (21:59)
[2022-08-18 22:01] LABS: Absolute Lymphocytes (CBC) 1.7 K/uL (0.7-4.9); Hematocrit 40.2 % (39.6-49.0); Lymphocytes % 25.6 % (15.3-44.8); MCV 95.8 fL (80-100); MPV 7.8 fL (7.6-11.3)
--- NOTE | 2022-08-18 22:05 | ER ---
Nurse's Notes [facility] Name: Kendell Ramos Age: 56 yrs Sex: Male : 1965 Arrival Date: 08/18/2022 Time: 21:11 Bed 5 Private MD: Diagnosis: Traumatic subdural hemorrhage with loss of consciousness of unspecified duration;Concussion with loss of consciousness of unspecified duration;Laceration with foreign body of other part of head, initial encounter Presentation: 08/18 21:25 Chief complaint: Patient states: I fell and hit my head, I don't remember everything vc1 that happened so I think I lost consciousness. Coronavirus screen: Vaccine status: Patient reports receiving the 1st dose of the Covid vaccine. Client denies travel out of the [place] in the last 14 days. At this time, the client does not indicate any symptoms associated with coronavirus-19. Ebola Screen: Patient negative for fever greater than or equal to 101.5 degrees Fahrenheit, and additional compatible Ebola Virus Disease symptoms Patient denies exposure to infectious person. Patient denies travel to an Ebola-affected area in the 21 days before illness onset. No symptoms or risks identified at this time. Initial Sepsis Screen: Does the patient meet any 2 criteria? No. Patient's initial sepsis screen is negative. Does the patient have a suspected source of infection? No. Patient's initial sepsis screen is negative. Risk Assessment: Do you want to hurt yourself or someone else? Patient reports no desire to harm self or others. Onset of symptoms was August 18, 2022. 21:25 Method Of Arrival: Wheelchair vc1 21:25 Acuity: LEONARD 2 vc1 21:34 Care prior to arrival: None. Mechanism of Injury: Fall. Trauma event details: Injury vc1 occurred in the [facility], Injury occurred: at home. Injury occurred: August 18, 2022 Injury occurred at: 21:00. Triage Assessment: 21:33 General: Appears in no apparent distress. comfortable, Behavior is calm, cooperative, vc1 appropriate for age. Pain: Complains of pain in scalp Pain does not radiate. EENT: No deficits noted. No signs and/or symptoms were reported regarding the EENT system. Neuro: López Agitation-Sedation Scale (RASS): 0 - Alert and Calm Level of Consciousness is awake, alert, obeys commands, Oriented to person, place, time, situation, Appropriate for age Pupils are PERRLA. Cardiovascular: No deficits noted. Respiratory: Airway is patent Respiratory effort is even, unlabored, Respiratory pattern is regular, symmetrical. GI: No deficits noted. No signs and/or symptoms were reported involving the gastrointestinal system. : No deficits noted. No signs and/or symptoms were reported regarding the genitourinary system. Derm: Wound noted scalp. Musculoskeletal: No deficits noted. No signs and/or symptoms reported regarding the musculoskeletal system. Injury Description: Laceration sustained to scalp. Trauma Activation: Alert Physician: ED Physician; Name: Aneudy; Notified At: 21:16; Arrived At: 21:16 Physician: General Surgeon; Name: ; Notified At: 21:16; Arrived At: Physician: Radiology; Name: Ino; Notified At: 21:16; Arrived At: 21:19 Physician: Respiratory; Name: ; Notified At: 21:16; Arrived At: Physician: Lab; Name: ; Notified At: 21:16; Arrived At: Historical: - Allergies: 21:30 No Known Allergies; vc1 - Home Meds: 21:30 lisinopril Oral [Active]; REFLUX MEDICATION [Active]; vc1 - PMHx: 21:30 reflux; vc1 - PSHx: 21:30 Left Rotator Cuff; vc1 - Immunization history:: Client reports receiving the Raghav \T\ Raghav single-dose vaccine. - Social history:: Smoking status: Patient denies any tobacco usage or history of. Patient uses Drank a couple glasses of wine tonight. - Immunization history: Last tetanus immunization: unknown. - Family history:: not pertinent. - Hospitalizations: : No recent hospitalization is reported. Screenin:31 [facility] ED Fall Risk Assessment (Adult) History of falling in the last 3 months, vc1 including since admission Yes- physiologic fall (2 pts) Confusion or Disorientation Yes (5 pts) Intoxicated or Sedated No (0 pts) Impaired Gait No (0 pts) Mobility Assist Device Used No (0 pt) Altered Elimination No (0 pt) Score/Fall Risk Level 3 or more points = High Risk Oriented to surroundings, Maintained a safe environment, Educated pt \T\ family on fall prevention, incl call for assistance when getting out of bed, Hourly rounding (assess needs \T\ fall precautionary measures) done, Utilized family, sitter, or virtual cad technician as indicated. Abuse screen: Denies threats or abuse. Nutritional screening: No deficits noted. Tuberculosis screening: No symptoms or risk factors identified. Primary Survey: 21:32 NO uncontrolled hemorrhage observed. A: The client is awake and alert. The airway is vc1 patent. Breathing/Chest: Spontaneous respiratory effort, equal unlabored respirations, breath sounds clear bilaterally, regular pattern, symmetrical chest rise and fall. Circulation: No external hemorrhage present. Regular and strong central pulse, skin warm/dry/normal color. Disability Pupils are equal, round, reactive to light and accommodation. Client is alert. Exposure/Environment: There is no evidence of uncontrolled external bleeding. Obvious injury(ies) are noted at this time: back of head. 22:03 Reassessment Alertness and Airway: Awake and alert. The airway is patent. Breathing: vc1 Spontaneous respiratory effort, equal unlabored respirations, breath sounds clear bilaterally, regular pattern with symmetrical chest rise and fall. Circulation: No external hemorrhage noted. Regular and strong central pulse, skin warm/dry/normal color. Disability: Pupils Pupils are equal, round, reactive to light and accomodation. Assessment: 21:45 Reassessment: See triage assessment. vc1 23:00 Reassessment: Patient and/or family updated on plan of care and expected duration. Pain vc1 level reassessed. Patient is alert, oriented x 3, equal unlabored respirations, skin warm/dry/pink. General: Appears in no apparent distress. Behavior is calm, cooperative, appropriate for age. Neuro: Level of Consciousness is awake, alert, obeys commands, Oriented to person, place, time, situation, Appropriate for age. Vital Signs: 21:25 Pulse 68; Resp 17; Temp 98.5; Pulse Ox 96% ; Weight 104.33 kg; Height 6 ft. 0 in. vc1 (182.88 cm); Pain 10/10; 22:02 BP 140 / 77; vc1 21:25 Body Mass Index 31.19 (104.33 kg, 182.88 cm) vc1 Rianna Coma Score: 21:32 Eye Response: spontaneous(4). Verbal Response: oriented(5). Motor Response: obeys vc1 commands(6). Total: 15. 22:27 Eye Response: spontaneous(4). Verbal Response: oriented(5). Motor Response: obeys rn commands(6). Total: 15. 22:27 Eye Response: spontaneous(4). Verbal Response: oriented(5). Motor Response: obeys rn commands(6). Total: 15. Trauma Score (Adult): 21:32 Eye Response: spontaneous(1); Verbal Response: oriented(1); Motor Response: obeys vc1 commands(2); Systolic BP: > 89 mm Hg(4); Respiratory Rate: 10 to 29 per min(4); [place] Score: 15; Trauma Score: 12 ED Course: 21:11 Patient arrived in ED. jj6 21:13 Vinicio Amado MD is Attending Physician. rn 21:24 Maryann Feng RN is Primary Nurse. vc1 21:28 Triage completed. vc1 21:34 Arm band placed on right wrist. vc1 21:37 Patient has correct armband on for positive identification. Bed in low position. Call vc1 light in reach. Pulse ox on. NIBP on. 21:37 Patient maintains SpO2 saturation greater than 95% on room air. vc1 21:41 CT Head C Spine In Process Unspecified. EDMS 21:41 CT Facial Bones W/O Con In Process Unspecified. EDMS 22:00 Inserted saline lock: 20 gauge in right antecubital area, using aseptic technique. vc1 Blood collected. 22:12 Initiated transfer to [facility]. wm 22:21 Accepted for transfer. wm 23:14 No provider procedures requiring assistance completed. Patient transferred, IV remains vc1 in place. 23:17 Thermoregulation: Pt refused blanket. vc1 Administered Medications: 22:02 Drug: morphine 4 mg Route: IVP; Infused Over: 4 mins; Site: right antecubital; vc1 22:02 Drug: Zofran (Ondansetron) 4 mg Route: IVP; Site: right antecubital; vc1 Medication: 23:17 VIS not applicable for this client. vc1 Intake: 23:16 PO: 0ml; IV: 0ml; Total: 0ml. vc1 23:16 Voided X1 vc1 Outcome: 22:04 ER care complete, transfer ordered by . rn 23:15 Transferred by ground EMS Transfer form completed. X-rays sent w/ patient. Note: 1 BIGRIT Wolf Report given to Alonzo ER nurse 23:15 Condition: stable 23:15 Instructed on the need for transfer. 23:17 Patient's length of stay was not longer than 2 hours. vc1 23:18 Patient left the ED. vc1 Signatures: Dispatcher [employer] Kanika Hoyt RN RN kl Nieto, Roman, MD MD rn Marsh, Wendy wm Jeffries, Jennifer jj6 Calcote, Vanessa, RN RN vc1 Corrections: (The following items were deleted from the chart) 21:33 21:13 Chief complaint: maxi vc1
--- NOTE | 2022-08-18 22:05 | EDPHYS ---
Physician Documentation [facility] Name: Kendell Ramos Age: 56 yrs Sex: Male : 1965 Arrival Date: 08/18/2022 Time: 21:11 Bed 5 Private MD: ED Physician Vinicio Amado HPI: 08/18 22:27 This 56 yrs old Male presents to ER via Wheelchair with complaints of Head Injury With rn LOC-Adult, Fall Injury. 22:27 The patient or guardian reports injury, a laceration. The complaints affect the scalp. rn Onset: The symptoms/episode began/occurred just prior to arrival. Associated signs and symptoms: Loss of consciousness: This patient experience a loss of consciousness, Pertinent positives: headache, Pertinent negatives: seizure, shortness of breath, vomiting. Severity of symptoms: At their worst the symptoms were mild, in the emergency department the symptoms are unchanged. The patient has not experienced similar symptoms in the past. The patient has not recently seen a physician. Pt reports lost balance and fell to ground, hit head with LOC. + nausea. No vomiting. Does not remember all events. . Historical: - Allergies: 21:30 No Known Allergies; vc1 - Home Meds: 21:30 lisinopril Oral [Active]; REFLUX MEDICATION [Active]; vc1 - PMHx: 21:30 reflux; vc1 - PSHx: 21:30 Left Rotator Cuff; vc1 - Immunization history:: Client reports receiving the Raghav \T\ Raghav single-dose vaccine. - Social history:: Smoking status: Patient denies any tobacco usage or history of. Patient uses Drank a couple glasses of wine tonight. - Immunization history: Last tetanus immunization: unknown. - Family history:: not pertinent. - Hospitalizations: : No recent hospitalization is reported. ROS: 22:27 Constitutional: Negative for fever, chills, and weight loss, Eyes: Negative for injury, rn pain, redness, and discharge, Neck: Negative for injury, pain, and swelling, Cardiovascular: Negative for chest pain, palpitations, and edema, Respiratory: Negative for shortness of breath, cough, wheezing, and pleuritic chest pain, Abdomen/GI: Negative for abdominal pain, vomiting, diarrhea, and constipation Back: Negative for injury and pain, MS/Extremity: Negative for injury and deformity, Skin: + scalp laceration Neuro: Negative for weakness, numbness, tingling, and seizure. Exam: 22:27 Constitutional: This is a well developed, well nourished patient who is awake, alert, rn and in no acute distress. Head/Face: Normocephalic, irregular superficial laceration to posterior scalp Eyes: Periorbital areas with no swelling, redness, or edema. Neck: No cervical spine tenderness Cardiovascular: Regular rate and rhythm. No pulse deficits. Respiratory: No increased work of breathing, no retractions or nasal flaring. Skin: Warm, dry MS/ Extremity: Pulses equal, no cyanosis. Neuro: Awake and alert, GCS 15, oriented to person, place, time, and situation. Cranial nerves II-XII grossly intact. Motor strength 5/5 in all extremities. Sensory grossly intact. Able to ambulate, reports dizziness and requires some help getting into bed from wheelchair. Vital Signs: 21:25 Pulse 68; Resp 17; Temp 98.5; Pulse Ox 96% ; Weight 104.33 kg; Height 6 ft. 0 in. vc1 (182.88 cm); Pain 10/10; 22:02 BP 140 / 77; vc1 21:25 Body Mass Index 31.19 (104.33 kg, 182.88 cm) vc1 Nazlini Coma Score: 21:32 Eye Response: spontaneous(4). Verbal Response: oriented(5). Motor Response: obeys vc1 commands(6). Total: 15. 22:27 Eye Response: spontaneous(4). Verbal Response: oriented(5). Motor Response: obeys rn commands(6). Total: 15. 22:27 Eye Response: spontaneous(4). Verbal Response: oriented(5). Motor Response: obeys rn commands(6). Total: 15. Trauma Score (Adult): 21:32 Eye Response: spontaneous(1); Verbal Response: oriented(1); Motor Response: obeys vc1 commands(2); Systolic BP: > 89 mm Hg(4); Respiratory Rate: 10 to 29 per min(4); Nazlini Score: 15; Trauma Score: 12 Laceration: 08/19 03:25 Wound Repair of 3cm ( 1.2in ) subcutaneous laceration to scalp. Distal rn neuro/vascular/tendon intact. Wound prep: Extensive cleansing by tractor technician by nurse, Wound explored. Skin closed with 3 [address] [place] using staple gun. Dressed with Kerlix. Patient tolerated well. MDM: 08/18 21:13 Patient medically screened. rn 22:27 Differential diagnosis: Contusion of Hematoma on Laceration of Intracranial bleed- rn Concussion cerebral contusion. Data reviewed: vital signs, nurses notes, lab test result(s), radiologic studies, CT scan, and as a result, I will admit patient. Counseling: I had a detailed discussion with the patient and/or guardian regarding: the historical points, exam findings, and any diagnostic results supporting the discharge/admit diagnosis, lab results, radiology results, the need for further work-up and treatment in the hospital, the need to transfer to another facility, for higher level of care, [facility] does not immediately have the required specialist. Response to treatment: the patient's symptoms have mildly improved after treatment, and as a result, I will admit patient. 08/18 21:19 Order name: CBC with Diff; Complete Time: 22:18 rn 08/18 21:19 Order name: Basic Metabolic Panel; Complete Time: 22:18 rn 08/18 21:19 Order name: CT Head C Spine; Complete Time: 21:56 rn 08/18 21:19 Order name: CT Facial Bones W/O Con; Complete Time: 21:56 rn 08/18 21:19 Order name: Protime (+inr); Complete Time: 22:18 rn 08/18 21:19 Order name: Ptt, Activated; Complete Time: 22:18 rn 08/18 21:19 Order name: IV Start; Complete Time: 21:54 rn Administered Medications: 22:02 Drug: morphine 4 mg Route: IVP; Infused Over: 4 mins; Site: right antecubital; vc1 22:02 Drug: Zofran (Ondansetron) 4 mg Route: IVP; Site: right antecubital; vc1 Disposition Summary: 08/18/22 22:04 Transfer Ordered Transfer Location: [facility] rn Reason: Higher level of care rn Condition: Stable rn Problem: new rn Symptoms: have improved rn Accepting Physician: (08/18/22 23:18) vc1 Diagnosis - Traumatic subdural hemorrhage with loss of consciousness of unspecified duration rn - Concussion with loss of consciousness of unspecified duration rn - Laceration with foreign body of other part of head, initial encounter rn Forms: - Medication Reconciliation Form rn - SBAR form rn Signatures: Dispatcher [employer] EDVinicio Saunders MD MD rn Calcote, Vanessa, RN RN vc1 Corrections: (The following items were deleted from the chart) 23:18 22:04 Dr. renee vc1
[2022-08-18 22:08] LABS: Protime INR 1.14
[2022-08-18 22:15] LABS: Potassium 3.6 mmol/L (3.5-5.1)
[2022-08-18 23:41] VITALS: TEMP 98.5; O2SAT 96
[2022-08-18 23:55] VITALS: BP 140/77
== END 2022-08-18 23:18 | disposition short-term general hospital (02) ==
LOC: ER 21:10
PROC: 0HQ0XZZ Repair Scalp Skin, External Approach (ICD-10-PCS; principal; 2022-08-18)
DX: S06.5X9A Traumatic subdural hemorrhage with loss of consciousness of unspecified duration, initial encounter (principal); S06.0X9A Concussion with loss of consciousness of unspecified duration, initial encounter; S01.01XA Laceration without foreign body of scalp, initial encounter
CPT/HCPCS: 85025; 80048; 36415; 85610; 85730; 70450; 72125; 70486; 76377; 96375; 96374; 99285; 12002; J2405